=== PATIENT | female | born 1955 | race Caucasian/White ===

== ENCOUNTER → 2020-03-14 12:17 | Outpatient (CLI) | payer MEDICARE, OTHER, SELFPAY ==
[2020-03-14 11:58] VITALS: BMI 19.9
--- NOTE | 2020-03-14 12:17 | EMB_PTH ---
PATIENT: UHMBERTO GONG LOC: [facility] U#:[id number] AGE/SX: 70/F ROOM: RE03/14/[address]: MARK Urbina : 1955 BED: DIS: SPEC #: [id number] RECD: 03/14/20 15:58 STATUS: PERRY SMILEY #: [id number] MADI: 03/14/20 12:[address]: Jyoti Malik NP DEPT: SURGICAL PATHOLOGY RECD BY: Hayder Mcghee Tissues: Endometrium, NOS Procedures: Surgery Specimen Level IV HEADER OPERATION: Endometrial biopsy PRE-OP DIAGNOSIS: Postmenopausal bleeding TISSUE SUBMITTED: Endometrial lining MICROSCOPIC DIAGNOSIS Endometrial biopsy: Disordered proliferative endometrium. MIKAEL:bárbara 03/16/20 COMMENT Case has been reviewed in consultation with Dr. Chaidez who concurs with the above diagnosis. IDC:AM MICROSCOPIC DESCRIPTION Slides are reviewed. GROSS DESCRIPTION Received is one container labeled with the patient's name and not further designated. The specimen consists of multiple irregular fragments of savage soft tissue mixed with mucoid tissue that in aggregate measure 2 x 1 x 0.1 cm. The specimen is totally submitted in one cassette. / SJ:rg 03/15/20 TC:5 CPT: 62143
== END ==
PROVIDERS: Referring Provider Nurse Practitioner Women's Health; Visit Provider Nurse Practitioner Women's Health
DX: N95.0 Postmenopausal bleeding (principal)
CPT/HCPCS: 88305

== ENCOUNTER → 2020-03-23 11:16 | Outpatient (CLI) | payer MEDICARE, OTHER, SELFPAY ==
[2020-03-14 11:58] VITALS: BMI 19.9
--- NOTE | 2020-03-23 11:17 | US_ITS ---
STUDY: ULTRASOUND OF THE FEMALE PELVIS - COMPLETE REASON FOR EXAM: Female, 65 years old. ABNORMAL BLEEDING, SPOTTING LMP: TECHNIQUE: Transabdominal and Transvaginal TECHNICAL QUALITY: Adequate. COMPARISON: None. FINDINGS: The uterus is anteverted and is tilted to the right side of the pelvis. The uterus measures 5.5 x 4.4 x 2.3 cm. Normal uterine cervix. The endometrium measures 2 mm in thickness, and is . There is no demonstrated endometrial mass. There is no demonstrated myometrial mass. I.U.D. - The patient does not have an I.U.D. The right ovary is visualized. The right ovary measures 2.0 x 1.0 x 2.0 cm. There is no right ovarian cyst or ovarian mass. There is no visualized right adnexal mass or complex lesion. There is normal arterial and normal venous vascularity. The left ovary is visualized. The left ovary measures 1.9 x 1.0 x 0.9 cm. There is no left ovarian cyst or ovarian mass. There is no visualized left adnexal mass or complex lesion. There is normal arterial and normal venous vascularity. There is no fluid in the cul-de-sac. The bladder is sonographically normal Dilated serpiginous vessels noted around the uterus suggesting pelvic congestion US/Transvaginal Non- IMPRESSION: Sonographically normal uterus and ovaries, no sonographic evidence of abnormal endometrial thickening Serpiginous vessels within the pelvis suggests pelvic congestion Electronically Signed: Lester Aguilera MD at 12:34 EDT , Service support ,
--- NOTE | 2020-03-23 11:17 | US_ITS ---
STUDY: ULTRASOUND OF THE FEMALE PELVIS - COMPLETE REASON FOR EXAM: Female, 65 years old. ABNORMAL BLEEDING, SPOTTING LMP: TECHNIQUE: Transabdominal and Transvaginal TECHNICAL QUALITY: Adequate. COMPARISON: None. FINDINGS: The uterus is anteverted and is tilted to the right side of the pelvis. The uterus measures 5.5 x 4.4 x 2.3 cm. Normal uterine cervix. The endometrium measures 2 mm in thickness, and is . There is no demonstrated endometrial mass. There is no demonstrated myometrial mass. I.U.D. - The patient does not have an I.U.D. The right ovary is visualized. The right ovary measures 2.0 x 1.0 x 2.0 cm. There is no right ovarian cyst or ovarian mass. There is no visualized right adnexal mass or complex lesion. There is normal arterial and normal venous vascularity. The left ovary is visualized. The left ovary measures 1.9 x 1.0 x 0.9 cm. There is no left ovarian cyst or ovarian mass. There is no visualized left adnexal mass or complex lesion. There is normal arterial and normal venous vascularity. There is no fluid in the cul-de-sac. The bladder is sonographically normal Dilated serpiginous vessels noted around the uterus suggesting pelvic congestion US/Pelvic (Non ) IMPRESSION: Sonographically normal uterus and ovaries, no sonographic evidence of abnormal endometrial thickening Serpiginous vessels within the pelvis suggests pelvic congestion Electronically Signed: Lester Aguilera MD at 12:34 EDT , Service support ,
== END ==
PROVIDERS: Referring Provider Nurse Practitioner Women's Health; Visit Provider Nurse Practitioner Women's Health
DX: N93.9 Abnormal uterine and vaginal bleeding, unspecified (principal)
CPT/HCPCS: 76830; 76856

== ENCOUNTER → 2020-06-15 09:54 | Outpatient (CLI) | payer MEDICARE, OTHER, SELFPAY ==
[2020-03-14 11:58] VITALS: BMI 19.9
[2020-05-18 10:15] VITALS: BMI 20.4
--- NOTE | 2020-06-15 10:01 | BD_ITS ---
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 COMPARISON: None. FINDINGS: Lumbar Spine (L1-L4): g/cm2 (0.816) / T-score (-2.9) / Z-score (-1.3) Findings are suggestive of osteoporosis with a high fracture risk. Left Femur Total: g/cm2 (0.776) / T-score (-1.8) / Z-score (-0.5) Left Femoral Neck: g/cm2 (0.799) / T-score (-1.7) / Z-score (-0.2) Right Femur Total: g/cm2 (0.752) / T-score (-2.0) / Z-score (-0.7) Right Femoral Neck: g/cm2 (0.882) / T-score (-1.1) / Z-score (0.4) BD/Dexa Bone Density Study IMPRESSION: The patient is considered osteoporotic as outlined below according to World Dmit[employer] Organization (WHO) criteria with a high fracture risk. Reference Information: The T-score is the number of standard deviations above or below the standard which is normal for young adults at their peak bone mineral density. The World Health Organization (WHO) interprets the T-scores as follows: Above -1 Normal bone density Between -1 and -2.5 Osteopenia Equal to / or below -2.5 Osteoporosis As a practical clinical guideline, osteopenia may be graded as follows: Mild -1 through -1.5 Moderate -1.6 through -2.0 Severe -2.1 through -2.4 The Z-score is the number of standard deviations above or below age-matched controls. A Z-score of less than -1.5 would be considered abnormal. References: 1. NIH Osteoporosis and Related Bone Diseases www osteo.org 2. International Society for Clinical Densitometry www iscd.org 3. National Osteoporosis Foundation www nof.org Electronically Signed: Cholo Pinon, at 14:14 EST , Service support ,
== END ==
PROVIDERS: Referring Provider Obstetrics & Gynecology; Visit Provider Obstetrics & Gynecology
DX: Z78.0 Asymptomatic menopausal state (principal)
CPT/HCPCS: 77080